=== PATIENT | female | born 1955 | race Caucasian/White ===

== ENCOUNTER 2017-10-12 08:22 | Emergency (ER) | payer BC ==
[~2017-10-12] VITALS: Ht 172.7 cm; Wt 74.4 kg
[~2017-10-12 08:22] MED LIST: ALBU90OI INH; ALBU90OI6 INH; ASPI81CH PO; ASPI81EC PO; Amlodipine Besyl5 MG PO; CHANTIX; DOCU100 PO; ERGO400 PO; GABA300 PO; HYDACE5; LAVAP17G PO; LEVSOD100 PO; LEVSOD88 PO; ONDA4ODT MM; OXYACE5T; OXYACE5T PO; PANT40 PO; PRAV20 PO; Prinivil10 MG PO; RALO60 PO; SACC250C PO; SERT100; VENL150ER PO; VITAMIN D5000 UNIT PO; Venlafaxine HC150 MG PO; [UNRECOGNIZED DRUG - REMARK]
[2017-10-12 09:30] LABS: Source, Urine Clean Catch
[2017-10-12 09:38] LABS: Bilirubin, Urine Neg (Neg); Blood, Urine 2+ (Neg); Glucose Qualitative, Urine Neg (Neg); Ketones, Urine Neg (Neg); Leukocyte Esterase, Urine 1+ (Neg); Nitrite, Urine Neg (Neg); Protein, Urine 1+ (Neg); Specific Gravity, Urine 1.015 (1.003-1.022); Urobilinogen, Urine NORM (Normal)
[2017-10-12 09:44] LABS: Appearance, Urine Clear (Clear); Color, Urine Yellow (P-Yellow)
[2017-10-12 09:46] LABS: BASOPHILS ABSOLUTE AUTO 0.06 K/mm3 (0.00-0.23); BASOPHILS PERCENT AUTO 0 % (0-2); EOSINOPHILS ABSOLUTE AUTO 0.02 K/mm3 (0.00-0.68); EOSINOPHILS PERCENT AUTO 0 % (0-6); Hematocrit 42.7 % (33.0-51.0); Hemoglobin 14.1 g/dL (11.5-16.0); IMMATURE GRAN ABSOLUTE AUTO 0.16 K/mm3 (0.00-0.10); IMMATURE GRAN PERCENT AUTO 1 % (0-1); LYMPHOCYTES ABSOLUTE AUTO 2.25 K/mm3 (0.84-5.20); LYMPHOCYTES PERCENT AUTO 10 % (21-46); MONOCYTES ABSOLUTE AUTO 1.46 K/mm3 (0.16-1.47); MONOCYTES PERCENT AUTO 7 % (4-13); Mean Corpuscular HGB 28.4 pg (26.0-34.0); Mean Corpuscular Volume 86 fL (80-100); NEUTROPHILS ABSOLUTE AUTO 18.59 K/mm3 (1.96-9.15); NEUTROPHILS PERCENT AUTO 82 % (41-73); Platelet Count 252 K/mm3 (150-400); RDW Coefficient Variation 13.4 % (11.7-14.2); Red Blood Cell Count 4.97 M/mm3 (3.80-5.20); White Blood Cell Count 22.54 K/mm3 (4.00-11.30)
[2017-10-12 09:53] LABS: White Blood Cells, Urine 0-2 /hpf (0-5)
[2017-10-12 09:54] LABS: Bacteria Few /hpf; Squamous Epithelial Cells Rare /hpf (Few); Yeast/Fungi Urine Few /hpf
[2017-10-12 10:07] LABS: Albumin, Blood 3.5 g/dL (3.4-5.0); Albumin/Globulin Ratio 0.9 (0.8-1.8); Bilirubin, Total 0.3 mg/dL (0.1-1.0); Calcium, Blood 8.6 mg/dL (8.5-10.1); Creatinine, Blood 1.12 mg/dL (0.40-1.00); Globulin, Blood 3.8 g/dL (2.2-4.0); Potassium, Blood 3.9 mmol/L (3.5-5.5); Total Protein, Blood 7.3 g/dL (6.4-8.2)
[2017-10-12] MEDS ORDERED: VARE1 PO (10:13)
[2017-10-12] MEDS ORDERED: Roxicodone5 MG PO (11:23)
[2017-10-12] MEDS ORDERED: Zofran4 MG PO (11:23)
== END 2017-10-12 11:43 | disposition home or self-care (01) ==
LOC: ER 08:22
PROVIDERS: Internal Medicine
DX: N13.2 Hydronephrosis with renal and ureteral calculous obstruction (principal); Z88.5 Allergy status to narcotic agent; Z79.899 Other long term (current) drug therapy; Z79.82 Long term (current) use of aspirin; E03.9 Hypothyroidism, unspecified; J45.909 Unspecified asthma, uncomplicated; Z87.891 Personal history of nicotine dependence
CPT/HCPCS: 36415; 74177; 80053; 81001; 83690; 85025; 87086; 96374; 96375; 99284-25; J1885; J2405; J3010; Q9967

== ENCOUNTER → 2018-02-07 | Outpatient (CLI) | payer BC ==
[~2018-02-07] MED LIST changes: +Roxicodone5 MG PO; +VARE1 PO; +Zofran4 MG PO
== END | disposition home or self-care (01) ==
LOC: LAB SHORT 08:03 → PLD 08:03
DX: D48.5 Neoplasm of uncertain behavior of skin (principal)
CPT/HCPCS: 88305; 88341; 88342

== ENCOUNTER → 2018-03-24 | Outpatient (CLI) | payer BC | END | disposition home or self-care (01) | LOC: PLD 14:40 → LAB SHORT 14:40 | DX: L57.8 Other skin changes due to chronic exposure to nonionizing radiation (principal); C44.300 Unspecified malignant neoplasm of skin of unspecified part of face | CPT/HCPCS: 88305 ==

== ENCOUNTER → 2018-10-12 | Outpatient (CLI) | payer BC ==
[~2018-10-12] MED LIST changes: +CELECOXIB200 MG PO; +Calcium + Vita1 EACH PO; +DESOX.05TG TOP; +LEVSOD75 PO; -LEVSOD88 PO; +PARO20 PO; -PRAV20 PO; +PRINIVIL10 MG PO; +Pravachol40 MG PO; +SIME80CH PO; +TOCO1000 PO; +[UNRECOGNIZED DRUG - OTHER] TOP
== END | disposition home or self-care (01) ==
LOC: PLD 07:39 → LAB SHORT 07:39
DX: D48.5 Neoplasm of uncertain behavior of skin (principal)
CPT/HCPCS: 88305

== ENCOUNTER 2018-11-24 16:47 | Observation (INO) | payer BC ==
[~2018-11-24] VITALS: Ht 172.7 cm; Wt 85.5 kg
[~2018-11-24 16:47] MED LIST changes: -CELECOXIB200 MG PO; -Calcium + Vita1 EACH PO; -DESOX.05TG TOP; -PARO20 PO; -PRINIVIL10 MG PO; -SIME80CH PO; -TOCO1000 PO; -[UNRECOGNIZED DRUG - OTHER] TOP
[2018-11-24 17:37] LABS: BASOPHILS ABSOLUTE AUTO 0.08 K/mm3 (0.00-0.23); BASOPHILS PERCENT AUTO 0 % (0-2); EOSINOPHILS PERCENT AUTO 2 % (0-6); Hematocrit 46.3 % (33.0-51.0); Hemoglobin 14.8 g/dL (11.5-16.0); IMMATURE GRAN ABSOLUTE AUTO 0.08 K/mm3 (0.00-0.10); IMMATURE GRAN PERCENT AUTO 0 % (0-1); LYMPHOCYTES ABSOLUTE AUTO 3.61 K/mm3 (0.84-5.20); LYMPHOCYTES PERCENT AUTO 20 % (21-46); MONOCYTES ABSOLUTE AUTO 1.36 K/mm3 (0.16-1.47); MONOCYTES PERCENT AUTO 8 % (4-13); Mean Corpuscular HGB 27.2 pg (26.0-34.0); Mean Corpuscular Volume 85 fL (80-100); Mean Platelet Volume 11.3 fL (9.1-12.4); NEUTROPHILS ABSOLUTE AUTO 12.36 K/mm3 (1.96-9.15); NEUTROPHILS PERCENT AUTO 69 % (41-73); Platelet Count 241 K/mm3 (150-400); RDW Coefficient Variation 15.4 % (11.7-14.2); RDW Standard Deviation 47.8 fL (35.1-46.3); Red Blood Cell Count 5.44 M/mm3 (3.80-5.20); White Blood Cell Count 17.89 K/mm3 (4.00-11.30)
[2018-11-24 17:51] LABS: Albumin/Globulin Ratio 1.1 (0.8-1.8); Bilirubin, Total 0.4 mg/dL (0.1-1.0); Bun/Creatinine Ratio 24.5 (12.0-20.0); Calcium, Blood 9.8 mg/dL (8.5-10.1); Creatinine, Blood 1.02 mg/dL (0.40-1.00); Globulin, Blood 3.8 g/dL (2.2-4.0); Potassium, Blood 3.9 mmol/L (3.5-5.5); Total Protein, Blood 7.8 g/dL (6.4-8.2)
[2018-11-24] MEDS ORDERED: PRINIVIL10 MG PO (19:48)
[2018-11-24] MEDS ORDERED: PARO20 PO (21:01)
[2018-11-24] MEDS ORDERED: [UNRECOGNIZED DRUG - OTHER] TOP (21:02)
[2018-11-24] MEDS ORDERED: Calcium + Vita1 EACH PO (23:58)
[2018-11-25] MEDS ORDERED: TOCO1000 PO (00:01)
[2018-11-25 05:42] LABS: Hematocrit 42.5 % (33.0-51.0); Hemoglobin 13.2 g/dL (11.5-16.0); Mean Corpuscular HGB 27.4 pg (26.0-34.0); Mean Corpuscular HGB Conc 31.1 g/dL (31.5-36.5); Mean Platelet Volume 11.7 fL (9.1-12.4); Platelet Count 209 K/mm3 (150-400); RDW Coefficient Variation 15.9 % (11.7-14.2); RDW Standard Deviation 51.6 fL (35.1-46.3); Red Blood Cell Count 4.82 M/mm3 (3.80-5.20); White Blood Cell Count 12.38 K/mm3 (4.00-11.30)
[2018-11-25 05:43] LABS: Mean Corpuscular Volume 88 fL (80-100)
--- NOTE | 2018-11-25 05:49 | NUR ---
SHIFT SUMMARY: Pt admitted to the medical floor tonight for a partial small bowel obstruction. Her N/V had resolved when she arrived. No N/V during the night. She has had 2 small formed BMs tonight. BT active x 4. Abdomen mildly distended and reports LLQ/LUQ/and midline abdominal tenderness with palpation. A/Ox4. Communicating needs clearly. Has remained NPO up until this documentation. Denies pain. Amb independently in room. VSS except pulse 58. Afeb. No complaints at this time. Call button in reach. Seems to have slept much of the night since arrival.
[2018-11-25 06:08] LABS: Alanine Aminotransfer (ALT/SGP 22 U/L (12-78); Albumin/Globulin Ratio 0.9 (0.8-1.8); Alk Phos 91 U/L (50-136); Anion Gap 3 mmol/L (6-16); Aspartate Aminotrans (AST/SGOT 27 U/L (12-37); Bilirubin, Total 0.5 mg/dL (0.1-1.0); Blood Urea Nitrogen 18 mg/dL (8-24); Bun/Creatinine Ratio 20.6 (12.0-20.0); CO2, Blood 28 mmol/L (21-32); Calcium, Blood 7.9 mg/dL (8.5-10.1); Chloride, Blood 113 mmol/L (98-108); Creatinine, Blood 0.87 mg/dL (0.40-1.00); Globulin, Blood 3.2 g/dL (2.2-4.0); Glomerular Filtration Rate >60 (60-); Glucose, Blood 87 mg/dL (70-99); Potassium, Blood 4.4 mmol/L (3.5-5.5); Sodium, Blood 144 mmol/L (136-145); Total Protein, Blood 6.2 g/dL (6.4-8.2)
[2018-11-25] MEDS ORDERED: CELECOXIB200 MG PO (10:15)
[2018-11-25] MEDS ORDERED: GABA300 PO (10:17)
[2018-11-25] MEDS ORDERED: DESOX.05TG TOP (10:17)
[2018-11-25] MEDS ORDERED: SIME80CH PO (16:30)
[2018-11-25] MEDS ORDERED: ONDA4ODT MM (16:30)
--- NOTE | 2018-11-25 17:21 | NUR ---
PATIENT DISCHARGED HOME WITH HER . ALL IV'S DISCONTINUED. ALL MEDICATIONS FAXED TO [facility].
== END 2018-11-25 17:40 | disposition home or self-care (01) ==
LOC: ER 16:47 → MEDS 16:48 → ER 22:33 → MEDS 23:07 → ENPENDDIS 11-25 13:46 → MEDS 11-25 17:40
PROVIDERS: Physician Assistant; ADMIT Internal Medicine
DX: K56.51 Intestinal adhesions [bands], with partial obstruction (principal); J44.9 Chronic obstructive pulmonary disease, unspecified; E03.9 Hypothyroidism, unspecified; F32.9 Major depressive disorder, single episode, unspecified; Z86.010 Personal history of colon polyps; Z79.51 Long term (current) use of inhaled steroids; Z79.82 Long term (current) use of aspirin; Z79.899 Other long term (current) drug therapy; Z88.5 Allergy status to narcotic agent; Z87.442 Personal history of urinary calculi
CPT/HCPCS: 36415; 74176; 80053; 83605; 85025; 85027; 94760; 96361; 96365; 96375; 99285-25; G0378; J1650; J2405; J2543; J7030; J7040

== ENCOUNTER → 2018-12-17 | Outpatient (CLI) | payer BC ==
[~2018-12-17] MED LIST changes: +CELECOXIB200 MG PO; +Calcium + Vita1 EACH PO; +DESOX.05TG TOP; +PARO20 PO; +PRINIVIL10 MG PO; +SIME80CH PO; +TOCO1000 PO; +[UNRECOGNIZED DRUG - OTHER] TOP
[2018-12-17 11:02] LABS: CHOL/HDL RATIO 6.1; Cholesterol 146 mg/dL (50-200); HDL Cholesterol 24 mg/dL (>39); LDL/HDL RATIO 3.5; Low Density Lipoprotein Chol 85 mg/dL (<110); Triglycerides 187 mg/dL (30-160); Very Low Density Lipoprot Chol 37 mg/dL (6-32)
== END | disposition home or self-care (01) ==
LOC: LAB EV 09:47
PROVIDERS: Internal Medicine
DX: E78.5 Hyperlipidemia, unspecified (principal)
CPT/HCPCS: 36415; 80061

== ENCOUNTER 2020-03-04 09:47 | Day surgery (SDC) | payer BC ==
[~2020-03-04] VITALS: Ht 172.7 cm; Wt 81.7 kg
[2020-03-04] MEDS ORDERED: SKYRIZI75 MG/0.81 (10:22)
== END 2020-03-04 11:52 | disposition home or self-care (01) ==
LOC: ORSCSDS 09:47
PROVIDERS: Internal Medicine Gastroenterology
PROC: 0DBM8ZX Excision of Descending Colon, Via Natural or Artificial Opening Endoscopic, Diagnostic (ICD-10-PCS; principal; 2020-03-04 11:00)
DX: Z12.11 Encounter for screening for malignant neoplasm of colon (principal); Z85.038 Personal history of other malignant neoplasm of large intestine; K63.5 Polyp of colon; K57.30 Diverticulosis of large intestine without perforation or abscess without bleeding; K64.1 Second degree hemorrhoids; K56.699 Other intestinal obstruction unspecified as to partial versus complete obstruction; K21.9 Gastro-esophageal reflux disease without esophagitis; E78.5 Hyperlipidemia, unspecified; J45.909 Unspecified asthma, uncomplicated; Z87.891 Personal history of nicotine dependence
CPT/HCPCS: 88305; J2704; J7120

== ENCOUNTER → 2021-04-01 | Outpatient (CLI) | payer BC ==
[~2021-04-01] MED LIST changes: +SKYRIZI75 MG/0.81
[2021-04-01 15:34] LABS: Albumin, Blood 3.9 g/dL (3.4-5.0); Bilirubin, Total 0.5 mg/dL (0.1-1.0); Calcium, Blood 9.8 mg/dL (8.5-10.1); Globulin, Blood 3.9 g/dL (2.2-4.0); Potassium, Blood 4.2 mmol/L (3.5-5.5); Total Protein, Blood 7.8 g/dL (6.4-8.2)
== END ==
LOC: LAB SHORT 15:17 → LAB 15:17
PROVIDERS: Chiropractor
DX: R11.2 Nausea with vomiting, unspecified (principal)
CPT/HCPCS: 80053

== ENCOUNTER 2021-11-06 21:42 | Observation (INO) | payer BC ==
[~2021-11-06] VITALS: Ht 172.7 cm; Wt 130.1 kg
[2021-11-06 23:32] LABS: BASOPHILS ABSOLUTE AUTO 0.06 K/mm3 (0.00-0.23); BASOPHILS PERCENT AUTO 0 % (0-2); EOSINOPHILS ABSOLUTE AUTO 0.41 K/mm3 (0.00-0.68); EOSINOPHILS PERCENT AUTO 2 % (0-6); Hematocrit 45.7 % (33.0-51.0); Hemoglobin 14.8 g/dL (11.5-16.0); IMMATURE GRAN ABSOLUTE AUTO 0.07 K/mm3 (0.00-0.10); IMMATURE GRAN PERCENT AUTO 0 % (0-1); LYMPHOCYTES ABSOLUTE AUTO 2.43 K/mm3 (0.84-5.20); LYMPHOCYTES PERCENT AUTO 12 % (21-46); MONOCYTES ABSOLUTE AUTO 1.36 K/mm3 (0.16-1.47); MONOCYTES PERCENT AUTO 7 % (4-13); Mean Corpuscular HGB Conc 32.4 g/dL (31.5-36.5); Mean Corpuscular Volume 86 fL (80-100); Mean Platelet Volume 10.8 fL (9.1-12.4); NEUTROPHILS ABSOLUTE AUTO 15.93 K/mm3 (1.96-9.15); NEUTROPHILS PERCENT AUTO 79 % (41-73); Platelet Count 230 K/mm3 (150-400); RDW Coefficient Variation 15.7 % (11.7-14.2); RDW Standard Deviation 49.6 fL (35.1-46.3); Red Blood Cell Count 5.29 M/mm3 (3.80-5.20); White Blood Cell Count 20.26 K/mm3 (4.00-11.30)
[2021-11-06 23:50] LABS: Albumin, Blood 3.5 g/dL (3.4-5.0); Bilirubin, Total 0.3 mg/dL (0.1-1.0); Bun/Creatinine Ratio 20.2 (12.0-20.0); Calcium, Blood 9.6 mg/dL (8.5-10.1); Creatinine, Blood 1.14 mg/dL (0.40-1.00); Globulin, Blood 3.5 g/dL (2.2-4.0); Potassium, Blood 4.9 mmol/L (3.5-5.5)
[2021-11-06 23:51] LABS: International Normalized Ratio 1.01; Prothrombin Time Results 10.6 Sec (9.7-11.5)
[2021-11-07] MEDS ORDERED: MONT10T PO (01:23)
[2021-11-07] MEDS ORDERED: Estrace Vagin42.5 GM VAG (04:41)
[2021-11-07] MEDS ORDERED: SYMBICORT 80-10.2 GM INH (04:42)
[2021-11-07] MEDS ORDERED: Prinivil10 MG PO (04:43)
[2021-11-07 05:57] LABS: BASOPHILS ABSOLUTE AUTO 0.09 K/mm3 (0.00-0.23); BASOPHILS PERCENT AUTO 1 % (0-2); EOSINOPHILS ABSOLUTE AUTO 0.24 K/mm3 (0.00-0.68); EOSINOPHILS PERCENT AUTO 1 % (0-6); Hematocrit 44.8 % (33.0-51.0); IMMATURE GRAN ABSOLUTE AUTO 0.06 K/mm3 (0.00-0.10); IMMATURE GRAN PERCENT AUTO 0 % (0-1); LYMPHOCYTES ABSOLUTE AUTO 1.53 K/mm3 (0.84-5.20); LYMPHOCYTES PERCENT AUTO 9 % (21-46); MONOCYTES ABSOLUTE AUTO 1.44 K/mm3 (0.16-1.47); MONOCYTES PERCENT AUTO 8 % (4-13); Mean Corpuscular HGB 27.6 pg (26.0-34.0); Mean Corpuscular HGB Conc 31.3 g/dL (31.5-36.5); Mean Corpuscular Volume 88 fL (80-100); Mean Platelet Volume 11.1 fL (9.1-12.4); NEUTROPHILS ABSOLUTE AUTO 13.91 K/mm3 (1.96-9.15); NEUTROPHILS PERCENT AUTO 81 % (41-73); Platelet Count 218 K/mm3 (150-400); RDW Coefficient Variation 15.9 % (11.7-14.2); RDW Standard Deviation 51.4 fL (35.1-46.3); Red Blood Cell Count 5.07 M/mm3 (3.80-5.20); White Blood Cell Count 17.27 K/mm3 (4.00-11.30)
[2021-11-07 06:23] LABS: Albumin, Blood 3.1 g/dL (3.4-5.0); Bilirubin, Total 0.4 mg/dL (0.1-1.0); Bun/Creatinine Ratio 21.3 (12.0-20.0); Calcium, Blood 9.4 mg/dL (8.5-10.1); Creatinine, Blood 1.08 mg/dL (0.40-1.00); Globulin, Blood 3.2 g/dL (2.2-4.0); Potassium, Blood 5.3 mmol/L (3.5-5.5); Total Protein, Blood 6.3 g/dL (6.4-8.2)
[2021-11-08 05:46] LABS: BASOPHILS ABSOLUTE AUTO 0.04 K/mm3 (0.00-0.23); BASOPHILS PERCENT AUTO 0 % (0-2); EOSINOPHILS ABSOLUTE AUTO 0.25 K/mm3 (0.00-0.68); EOSINOPHILS PERCENT AUTO 2 % (0-6); Hemoglobin 13.6 g/dL (11.5-16.0); IMMATURE GRAN ABSOLUTE AUTO 0.03 K/mm3 (0.00-0.10); IMMATURE GRAN PERCENT AUTO 0 % (0-1); LYMPHOCYTES ABSOLUTE AUTO 2.53 K/mm3 (0.84-5.20); LYMPHOCYTES PERCENT AUTO 20 % (21-46); MONOCYTES ABSOLUTE AUTO 0.96 K/mm3 (0.16-1.47); MONOCYTES PERCENT AUTO 8 % (4-13); Mean Corpuscular HGB Conc 32.4 g/dL (31.5-36.5); Mean Corpuscular Volume 86 fL (80-100); Mean Platelet Volume 10.8 fL (9.1-12.4); NEUTROPHILS ABSOLUTE AUTO 8.68 K/mm3 (1.96-9.15); NEUTROPHILS PERCENT AUTO 70 % (41-73); Platelet Count 214 K/mm3 (150-400); RDW Coefficient Variation 15.9 % (11.7-14.2); RDW Standard Deviation 50.7 fL (35.1-46.3); Red Blood Cell Count 4.86 M/mm3 (3.80-5.20); White Blood Cell Count 12.49 K/mm3 (4.00-11.30)
[2021-11-08 06:07] LABS: Bun/Creatinine Ratio 14.3 (12.0-20.0); Calcium, Blood 8.3 mg/dL (8.5-10.1); Creatinine, Blood 0.84 mg/dL (0.40-1.00); Potassium, Blood 4.5 mmol/L (3.5-5.5)
== END 2021-11-08 11:15 | disposition home or self-care (01) ==
LOC: ER 21:42 → MEDS 11-07 01:16 → ER 11-07 01:16 → MEDS 11-07 04:30
PROVIDERS: Emergency Medicine; Internal Medicine; Student in an Organized Health Care Education/Training Program; ADMIT Internal Medicine
DX: K56.600 Partial intestinal obstruction, unspecified as to cause (principal); N17.9 Acute kidney failure, unspecified; I95.9 Hypotension, unspecified; J44.9 Chronic obstructive pulmonary disease, unspecified; E78.00 Pure hypercholesterolemia, unspecified; F41.8 Other specified anxiety disorders; N95.2 Postmenopausal atrophic vaginitis; Z88.5 Allergy status to narcotic agent; E03.9 Hypothyroidism, unspecified; Z87.891 Personal history of nicotine dependence; Z85.038 Personal history of other malignant neoplasm of large intestine; N18.4 Chronic kidney disease, stage 4 (severe); E88.09 Other disorders of plasma-protein metabolism, not elsewhere classified; D72.829 Elevated white blood cell count, unspecified
CPT/HCPCS: 36415; 71045; 74177; 80048; 80053; 83605; 83690; 85025; 85610; 85730; 86850; 86900; 86901; 93005; 93010; 94640; 94664; 94760; 96374-59; 96375; 99285-25; A9270; J1650; J1885; J2405; J3010; J7030; J7120; Q9967

== ENCOUNTER 2024-05-04 23:18 | Inpatient (IN) | payer BC ==
[~2024-05-04] VITALS: Ht 172.7 cm; Wt 79.4 kg
[~2024-05-04 23:18] MED LIST changes: +Estrace Vagin42.5 GM VAG; -LEVSOD75 PO; +MONT10T PO; +SYMBICORT 80-10.2 GM INH
[2024-05-04] MEDS ORDERED: Lactated Ringer's 1,000 ML IV ONE (23:55)
[2024-05-04] MEDS ORDERED: Ondansetron HCl 2 MG / ML 2ML Vial IV ONE (23:55)
[2024-05-04] MEDS ORDERED: HYDROmorphone HCl/Pf 1MG SYR IV ONE (23:55)
[2024-05-05 00:09] LABS: BASOPHILS PERCENT AUTO 1 % (0-2); EOSINOPHILS ABSOLUTE AUTO 0.18 K/mm3 (0.00-0.68); EOSINOPHILS PERCENT AUTO 1 % (0-6); Hematocrit 45.9 % (33.0-51.0); Hemoglobin 15.3 g/dL (11.5-16.0); IMMATURE GRAN ABSOLUTE AUTO 0.11 K/mm3 (0.00-0.10); IMMATURE GRAN PERCENT AUTO 1 % (0-1); LYMPHOCYTES ABSOLUTE AUTO 1.95 K/mm3 (0.84-5.20); LYMPHOCYTES PERCENT AUTO 9 % (21-46); MONOCYTES ABSOLUTE AUTO 1.76 K/mm3 (0.16-1.47); MONOCYTES PERCENT AUTO 8 % (4-13); Mean Corpuscular HGB 27.5 pg (26.0-34.0); Mean Corpuscular HGB Conc 33.3 g/dL (31.5-36.5); Mean Corpuscular Volume 82 fL (80-100); Mean Platelet Volume 10.7 fL (9.1-12.4); NEUTROPHILS ABSOLUTE AUTO 17.08 K/mm3 (1.96-9.15); NEUTROPHILS PERCENT AUTO 81 % (41-73); Platelet Count 267 K/mm3 (150-400); RDW Coefficient Variation 14.5 % (11.7-14.2); RDW Standard Deviation 43.3 fL (35.1-46.3); Red Blood Cell Count 5.57 M/mm3 (3.80-5.20); White Blood Cell Count 21.18 K/mm3 (4.00-11.30)
[2024-05-05 00:32] LABS: Albumin, Blood 3.9 g/dL (3.4-5.0); Albumin/Globulin Ratio 0.9 (0.8-1.8); Bilirubin, Total 0.2 mg/dL (0.1-1.0); Calcium, Blood 10.2 mg/dL (8.5-10.1); Creatinine, Blood 1.05 mg/dL (0.40-1.00); Globulin, Blood 4.5 g/dL (2.2-4.0); Potassium, Blood 4.4 mmol/L (3.5-5.5); Total Protein, Blood 8.4 g/dL (6.4-8.2)
[2024-05-05] MEDS ORDERED: HYDROmorphone HCl/Pf 1MG SYR IV ONE (01:50)
[2024-05-05] MEDS ORDERED: Lactated Ringer's 1,000 ML IV ONE (03:20)
[2024-05-05] MEDS ORDERED: Acetaminophen 325 MG TABLET PO PRN (03:45)
[2024-05-05] MEDS ORDERED: Naloxone HCl 0.4MG / ML 1ML Vial IV PRN (03:45)
[2024-05-05] MEDS ORDERED: Ondansetron HCl 2 MG / ML 2ML Vial IV PRN (03:45)
[2024-05-05] MEDS ORDERED: HYDROmorphone HCl/Pf 1MG SYR IV PRN (03:45)
[2024-05-05] MEDS ORDERED: FLU VACC TS2024-25(6MOS UP)/PF 45 MCG/0.5 ML SYRINGE IM ONE (03:45)
[2024-05-05] MEDS ORDERED: Lactated Ringer's 1,000 ML IV SCH (04:00)
[2024-05-05 04:35] LABS: Source, Urine Clean Catch
[2024-05-05 04:37] LABS: Bilirubin, Urine Neg (Neg); Blood, Urine Neg (Neg); Glucose Qualitative, Urine Neg (Neg); Ketones, Urine Neg (Neg); Leukocyte Esterase, Urine 1+ (Neg); Nitrite, Urine Neg (Neg); Protein, Urine 2+ (Neg); Urobilinogen, Urine NORM (Normal)
[2024-05-05] MEDS ORDERED: HYDROmorphone HCl/Pf 1MG SYR ONE (04:48)
[2024-05-05 04:53] LABS: Appearance, Urine Clear (Clear); Color, Urine Yellow (P-Yellow)
[2024-05-05 04:56] LABS: Bacteria Few /hpf; Calcium Oxalate Crystals Few /hpf; Red Blood Cells, Urine 0-2 /hpf (0-2); Squamous Epithelial Cells Few /hpf (Few)
[2024-05-05 05:05] VITALS: BP 124/66
--- NOTE | 2024-05-05 06:07 | NUR ---
TRANSFER SUMMARY: PT AOX4 ARRIVED AT 0500. AMBULATED IND FROM [facility]NEY TO THE BED WITHOUT ISSUE. STATEES MILD DISCOMFORT RELIEVED BY MEDICATION GIVEN IN THE ED. PT VERY PLEASANT AND COOPERATIVE IN CARE. PT ORIENTED TO ROOM AND IN BED RESTING, BED IN LOWEST POSITION, CALL LIGHT IN REACH. CONTINUING CARE.
[2024-05-05 07:38] VITALS: BP 107/57
[2024-05-05] MEDS ORDERED: D5W-1/2NS KCl 20mEq 1,000 ML IV SCH (09:00)
[2024-05-05] MEDS ORDERED: D5W-LR 1,000 ML IV SCH (09:00)
[2024-05-05 09:40] LABS: Bun/Creatinine Ratio 18.7 (12.0-20.0); Creatinine, Blood 0.91 mg/dL (0.40-1.00); Potassium, Blood 5.3 mmol/L (3.5-5.5)
[2024-05-05] MEDS ORDERED: OTEZLA30 MG PO (12:44)
[2024-05-05] MEDS ORDERED: LOSARTAN POTASS25 M2 PO (12:45)
[2024-05-05] MEDS ORDERED: METOPROLOL SUCC25 MG PO (12:46)
[2024-05-05] MEDS ORDERED: ROSUVASTATIN CA10 MG PO (12:47)
[2024-05-05] MEDS ORDERED: Estradiol Vag Cream 0.1 MG/G 42.5 GM Tube VAG SCH (15:15)
[2024-05-05 16:05] VITALS: BP 108/62
--- NOTE | 2024-05-05 16:32 | NUR ---
Attempted visit. Kristal (pt) was awake but when asked if she was interested in a visit, she politely replied that she was tired. She intends to be discharged "in time for [facility] on wednesday." I encouraged the pt in her recovery and left her to get further rest.
[2024-05-05] MEDS ORDERED: Mometasone/Formoterol MDI 100/5 mcg 13 GM INH SCH (16:55)
[2024-05-05] MEDS ORDERED: Enoxaparin 40 MG/0.4 ML SYR SC SCH (17:00)
--- NOTE | 2024-05-05 18:32 | NUR ---
SHIFT SUMMARY PT CONT LEVEL OF CARE. PT A&O X4 AND INDEPENEDENT IN ROOM. PT WAS ADMITTED FROM ED EARLY THIS AM WITH SBO. PT NOTED TO HAVE SLIGHT DESTINTION TO ABD BOWEL SOUNDS PRESENT X4 BUT HYPOACTIVE. PT DENIES N/V BUT DOES ENDORSE ABD PAIN AND HAS BEEN MEDICATED PER EMAR. PT HAS BEEN CLEARED FOR ICE CHIPS. POSSIBLE DC IN 1-2DAYS.
[2024-05-05 19:45] VITALS: BP 103/59
[2024-05-05] MEDS ORDERED: PARoxetine HCl 20 MG Tab PO SCH (21:00)
--- NOTE | 2024-05-06 04:07 | NUR ---
SHIFT SUMMARY PATIENT HAD NO ACUTE CHANGES. ALERT ORIENTED AND INDEPENDENT. ON 2L O2 NC. DENIES CHEST PAIN, SOB, AND N/V. VSS/AFEBRILE. NPO. PIV INTACT. D5 LR INFUSING @ 100 mL/HR. REPORTED ABDOMEN PAIN X ONE AND IV DILAUDID 0.5 MG GIVEN WILL GOOD EFFECT. TYLENOL 650 MG GIVEN X ONE FOR VOGEL. CALL LIGHT IN REACH. BED IN LOWEST POSITION. WILL CONTINUE TO MONITOR UNTIL DAY SHIFT NURSE ASSUMES CARE.
[2024-05-06 04:46] VITALS: BP 110/61
[2024-05-06 05:39] LABS: BASOPHILS ABSOLUTE AUTO 0.03 K/mm3 (0.00-0.23); BASOPHILS PERCENT AUTO 0 % (0-2); EOSINOPHILS ABSOLUTE AUTO 0.39 K/mm3 (0.00-0.68); EOSINOPHILS PERCENT AUTO 3 % (0-6); Hematocrit 39.5 % (33.0-51.0); Hemoglobin 12.5 g/dL (11.5-16.0); IMMATURE GRAN ABSOLUTE AUTO 0.04 K/mm3 (0.00-0.10); IMMATURE GRAN PERCENT AUTO 0 % (0-1); LYMPHOCYTES ABSOLUTE AUTO 2.12 K/mm3 (0.84-5.20); LYMPHOCYTES PERCENT AUTO 18 % (21-46); MONOCYTES ABSOLUTE AUTO 1.24 K/mm3 (0.16-1.47); MONOCYTES PERCENT AUTO 11 % (4-13); Mean Corpuscular HGB Conc 31.6 g/dL (31.5-36.5); Mean Platelet Volume 10.8 fL (9.1-12.4); NEUTROPHILS ABSOLUTE AUTO 7.73 K/mm3 (1.96-9.15); NEUTROPHILS PERCENT AUTO 67 % (41-73); Platelet Count 199 K/mm3 (150-400); RDW Standard Deviation 47.9 fL (35.1-46.3); Red Blood Cell Count 4.47 M/mm3 (3.80-5.20); White Blood Cell Count 11.55 K/mm3 (4.00-11.30)
[2024-05-06] MEDS ORDERED: Levothyroxine Sodium 0.1 MG Tab PO SCH (06:00)
[2024-05-06] MEDS ORDERED: Pantoprazole Sodium 40 MG Injection IV SCH (06:00)
[2024-05-06 06:08] LABS: Bun/Creatinine Ratio 12.2 (12.0-20.0); Calcium, Blood 8.5 mg/dL (8.5-10.1); Creatinine, Blood 0.82 mg/dL (0.40-1.00); Potassium, Blood 4.2 mmol/L (3.5-5.5)
[2024-05-06 06:10] LABS: Mean Corpuscular Volume 88 fL (80-100)
[2024-05-06 07:36] VITALS: BP 130/67
[2024-05-06] MEDS ORDERED: Metoprolol Succinate 25 MG TABCR PO SCH ×2 (09:00→21:00)
[2024-05-06] MEDS ORDERED: Aspirin 81 MG Chew PO SCH (09:00)
[2024-05-06] MEDS ORDERED: Losartan Potassium 25 MG Tab PO SCH (09:00)
[2024-05-06] MEDS ORDERED: Montelukast Sodium 10 MG Tab PO SCH ×2 (09:00→21:00)
[2024-05-06] MEDS ORDERED: Rosuvastatin Calcium 10 MG Tab PO SCH ×2 (09:00→21:00)
[2024-05-06] MEDS ORDERED: Albuterol HFA200 ACT/6.7 GM INH INH PRN (12:45)
[2024-05-06 15:09] VITALS: BP 122/52
--- NOTE | 2024-05-06 18:05 | NUR ---
SHIFT SUMMARY PATIENT WALKING HALLS THIS SHIFT. CONTINUES RUNNING IV FLUIDS. ONE EPISODE NAUSEA WITH IV PAIN MED ADMINISTRATION, GIVEN ZOFRAN WITH GOOD RELIEF. BOWEL TONES PRESENT, PASSING GAS, NO BM. TOLERATING PO MEDS AND OCCASIONAL ICE CHIPS. ABLE TO MAKE NEEDS KNOWN. CALL LIGHT IN REACH.
[2024-05-06 19:30] VITALS: BP 127/66
--- NOTE | 2024-05-07 04:10 | NUR ---
SHIFT SUMMARY BREAK NURSE REPORTED PATIENT NAUSEOUS X ONE. DENIES CHEST PAIN AND SOB. VSS/AFEBRILE. ALERT ORIENTED AND INDEPENDENT. PIV INTACT. D5LR INFUSING @ 100mL/HR. SLEPT MOST OF THE SHIFT. CALL LIGHT IN REACH. BED IN LOWEST POSITION. WILL CONTINUE TO MONITOR UNTIL DAY SHIFT NURSE ASSUMES CARE.
[2024-05-07 04:22] VITALS: BP 116/59
[2024-05-07 05:12] LABS: BASOPHILS ABSOLUTE AUTO 0.03 K/mm3 (0.00-0.23); BASOPHILS PERCENT AUTO 0 % (0-2); EOSINOPHILS ABSOLUTE AUTO 0.25 K/mm3 (0.00-0.68); EOSINOPHILS PERCENT AUTO 3 % (0-6); Hematocrit 37.1 % (33.0-51.0); Hemoglobin 11.8 g/dL (11.5-16.0); IMMATURE GRAN ABSOLUTE AUTO 0.03 K/mm3 (0.00-0.10); IMMATURE GRAN PERCENT AUTO 0 % (0-1); LYMPHOCYTES ABSOLUTE AUTO 2.05 K/mm3 (0.84-5.20); LYMPHOCYTES PERCENT AUTO 23 % (21-46); MONOCYTES ABSOLUTE AUTO 1.04 K/mm3 (0.16-1.47); MONOCYTES PERCENT AUTO 12 % (4-13); Mean Corpuscular HGB 27.6 pg (26.0-34.0); Mean Corpuscular HGB Conc 31.8 g/dL (31.5-36.5); Mean Corpuscular Volume 87 fL (80-100); Mean Platelet Volume 10.9 fL (9.1-12.4); NEUTROPHILS ABSOLUTE AUTO 5.55 K/mm3 (1.96-9.15); NEUTROPHILS PERCENT AUTO 62 % (41-73); Platelet Count 202 K/mm3 (150-400); RDW Coefficient Variation 14.6 % (11.7-14.2); RDW Standard Deviation 46.9 fL (35.1-46.3); Red Blood Cell Count 4.28 M/mm3 (3.80-5.20); White Blood Cell Count 8.95 K/mm3 (4.00-11.30)
[2024-05-07 05:35] LABS: Bun/Creatinine Ratio 9.7 (12.0-20.0); Calcium, Blood 8.9 mg/dL (8.5-10.1); Creatinine, Blood 0.72 mg/dL (0.40-1.00); Potassium, Blood 3.7 mmol/L (3.5-5.5)
[2024-05-07 08:04] VITALS: BP 140/64
--- NOTE | 2024-05-07 16:13 | NUR ---
DR OZUNA AT BEDSIDE, CONFIRMED X RAY CLEAR, OKAYED FOR ADVANCED TOLERATED DIET. SO FAR PATIENT TOLERATING CLEARS AND FULL LIQUID CHOICES. BOWEL TONES EQUALLY ACTIVE THROUGHOUT. PATIENT HAVING MULTIPLE BM'S, HARD AT FIRST AND NOW LIQUID. REPORTS DECREASED ABDOMINAL PAIN.
[2024-05-07 19:05] VITALS: BP 138/71
--- NOTE | 2024-05-07 19:24 | NUR ---
SHIFT SUMMARY PATIENT CONTINUES TO HAVE LIQUID BOWEL MOVEMENTS, REPORTS CLEAR COLORED AT THIS TIME. C/O EXCORIATION TO ANUS, GIVEN WET WIPES AND BARRIER CREAM. MILD C/O ABDOMINAL DISCOMFORT AFTER FULL LIQUID DINNER. WILL CONTINUE TO ADVANCE DIET TOLERATED. A/OX4. ABLE TO MAKE NEEDS KNOWN. CALL LIGHT IN REACH.
--- NOTE | 2024-05-08 04:05 | NUR ---
SHIFT SUMMARY PATIENT HAD NO ACUTE CHANGES. REPORTS HAD BM T/O DAY AND NOW SLOWING DOWN. ALERT, ORIENTED, AND INDEPENDENT. PIV INTACT. DENIES CHEST PAIN, SOB, AND N/V. VSS/AFEBRILE. D5LR INFUSING @ 100 mL/HR. SLEPT MOST OF THE SHIFT. CALL LIGHT IN REACH. BED IN LOWEST POSITION. WILL CONTINUE TO MONITOR UNTIL DAY SHIFT NURSE ASSUMES CARE.
[2024-05-08 04:15] VITALS: BP 143/71
[2024-05-08 05:14] LABS: BASOPHILS ABSOLUTE AUTO 0.06 K/mm3 (0.00-0.23); BASOPHILS PERCENT AUTO 1 % (0-2); EOSINOPHILS ABSOLUTE AUTO 0.43 K/mm3 (0.00-0.68); EOSINOPHILS PERCENT AUTO 5 % (0-6); Hematocrit 37.9 % (33.0-51.0); Hemoglobin 12.2 g/dL (11.5-16.0); IMMATURE GRAN ABSOLUTE AUTO 0.02 K/mm3 (0.00-0.10); IMMATURE GRAN PERCENT AUTO 0 % (0-1); LYMPHOCYTES ABSOLUTE AUTO 2.05 K/mm3 (0.84-5.20); LYMPHOCYTES PERCENT AUTO 25 % (21-46); MONOCYTES ABSOLUTE AUTO 0.95 K/mm3 (0.16-1.47); MONOCYTES PERCENT AUTO 12 % (4-13); Mean Corpuscular HGB 27.4 pg (26.0-34.0); Mean Corpuscular HGB Conc 32.2 g/dL (31.5-36.5); Mean Corpuscular Volume 85 fL (80-100); Mean Platelet Volume 10.8 fL (9.1-12.4); NEUTROPHILS ABSOLUTE AUTO 4.74 K/mm3 (1.96-9.15); NEUTROPHILS PERCENT AUTO 58 % (41-73); Platelet Count 217 K/mm3 (150-400); RDW Coefficient Variation 14.6 % (11.7-14.2); RDW Standard Deviation 44.7 fL (35.1-46.3); Red Blood Cell Count 4.46 M/mm3 (3.80-5.20); White Blood Cell Count 8.25 K/mm3 (4.00-11.30)
[2024-05-08 05:24] LABS: Bun/Creatinine Ratio 9.5 (12.0-20.0); Calcium, Blood 9.3 mg/dL (8.5-10.1); Creatinine, Blood 0.74 mg/dL (0.40-1.00); Potassium, Blood 3.6 mmol/L (3.5-5.5)
[2024-05-08 06:41] VITALS: BP 156/89
--- NOTE | 2024-05-08 15:26 | NUR ---
1520- PT LEFT IN STABLE CONDITION WITH ALL BELONINGS. PT PICKED UP BY FOR DC.
== END 2024-05-08 15:18 | disposition home or self-care (01) | DRG 389 ==
LOC: ER 23:18 → ERHOLD 05-05 03:41 → MEDS 05-05 03:41
PROVIDERS: Family Medicine; Physician Assistant; Surgery; ADMIT Student in an Organized Health Care Education/Training Program
DX: K56.609 Unspecified intestinal obstruction, unspecified as to partial versus complete obstruction (principal); E87.20 Acidosis, unspecified; J44.9 Chronic obstructive pulmonary disease, unspecified; E03.9 Hypothyroidism, unspecified; D72.829 Elevated white blood cell count, unspecified; F32.A Depression, unspecified; R14.0 Abdominal distension (gaseous); Z88.5 Allergy status to narcotic agent; Z79.51 Long term (current) use of inhaled steroids; Z79.82 Long term (current) use of aspirin; Z79.899 Other long term (current) drug therapy; Z79.890 Hormone replacement therapy; Z93.2 Ileostomy status; Z87.442 Personal history of urinary calculi; Z90.49 Acquired absence of other specified parts of digestive tract; Z98.890 Other specified postprocedural states; Z87.891 Personal history of nicotine dependence; Z85.038 Personal history of other malignant neoplasm of large intestine; Z28.21 Immunization not carried out because of patient refusal
CPT/HCPCS: 36415; 74177; 74250; 80048; 80053; 81001; 82947; 83605; 85025; 87086; 94640; 94664; 94762; 96361; 96374; 96375; 96376; 99285; A9270; J1171; J2405; J2470; J7120; J7121; Q9967